=== PATIENT | male | born 1940 | race Hispanic/Latino ===

== ENCOUNTER 2022-11-02 08:53 | Outpatient (CLI) | payer BC | END 2022-11-02 08:54 | disposition home or self-care (01) | LOC: CSHRAD 08:53 | PROVIDERS: ATTEND Specialist | DX: M25.551 Pain in right hip (principal); M16.11 Unilateral primary osteoarthritis, right hip ==

== ENCOUNTER 2022-12-06 07:45 | Outpatient (CLI) | payer BC ==
[2022-12-06 09:41] LABS: Hemoglobin 14.5 g/dL (13.5-17.5); INR-International Normal Ratio 0.9; Mean Corpuscular HGB CONC 32.1 g/dL (32.0-36.0); Mean Corpuscular Hemoglobin 28.8 pg (27.0-33.0); Mean Corpuscular Volume 89.9 fl (81.2-95.1); Mean Platelet Volume 9.7 fl (7.4-10.4); Platelet Count 181 10x3/uL (150-450); Red Blood Cell (RBC) Count 5.03 10x6/uL (4.32-5.72); White Blood Cell (WBC) Count 5.2 10x3/uL (3.5-10.5)
[2022-12-06 09:42] LABS: Anion Gap 13 mmol/L (10-20); BUN (Urea Nitrogen) 20 mg/dL (8.4-25.7); Calc. Creatinine Clearance 0 mL/min (70-130); Calcium 9.5 mg/dL (7.8-10.44); Carbon Dioxide 26 mmol/L (23-31); Chloride 105 mmol/L (98-107); Estimated GFR 86; Glucose 113 mg/dL (83-110); Sodium 139 mmol/L (136-145)
== END 2022-12-06 07:46 | disposition home or self-care (01) ==
LOC: CSHLAB 07:45
PROVIDERS: ATTEND Specialist
DX: Z01.818 Encounter for other preprocedural examination (principal); R94.39 Abnormal result of other cardiovascular function study
CPT/HCPCS: 80048; 85027; 85610; 93005; 93010

== ENCOUNTER → 2022-12-07 | Day surgery (SDC) | payer BC ==
[~2022-12-07] MED LIST: Adenosine 6 MG/2 ML VIAL ONE; Ascorbic Acid 500 mg Chewable Tablet ONE; Aspirin 325 MG TAB ONE; Fentanyl 100 MCG/2 ML VIAL ONE; Heparin 10,000 UNITS/ 10 ML VIAL ONE; Iopamidol 300 61% 100 ML VIAL FS ONE; Lidocaine 1% (PF) 30 ML VIAL ONE; Midazolam HCl 2 mg/2 ml Vial ONE; Nitroglycerin 50 MG/250 ML BOT 250 ML ONE; Sodium Chloride 0.9% 1,000 ML ONE; hydrALAZINE 20 MG/ML VIAL SLOW IVP PRN
[2022-12-07 10:51] VITALS: BP 188/76; TEMP 97.7; BMI 23.3
== END ==
LOC: CSHSDC 08:28
PROVIDERS: ATTEND Specialist
DX: R94.39 Abnormal result of other cardiovascular function study (principal); I25.118 Atherosclerotic heart disease of native coronary artery with other forms of angina pectoris; F32.A Depression, unspecified; I11.0 Hypertensive heart disease with heart failure; I50.32 Chronic diastolic (congestive) heart failure; E78.2 Mixed hyperlipidemia; E11.9 Type 2 diabetes mellitus without complications; I45.10 Unspecified right bundle-branch block; I25.2 Old myocardial infarction; I70.213 Atherosclerosis of native arteries of extremities with intermittent claudication, bilateral legs; Z95.810 Presence of automatic (implantable) cardiac defibrillator; Z79.82 Long term (current) use of aspirin; Z79.899 Other long term (current) drug therapy
CPT/HCPCS: 93459; 99152; C1760; C1769; J0153; J1644; J2001; J2250; J3010; J7050; Q9967